=== PATIENT | female | born 1990 | race American Indian/Alaskan Native ===

== ENCOUNTER 2017-03-05 00:38 | Emergency (ER) | payer OTHER ==
[2017-03-05 00:53] VITALS: BP 123/71
--- NOTE | 2017-03-05 09:53 | XRay Report ---
ROUTINE CHEST, TWO VIEWS: HISTORY: Dyspnea. The trachea, heart, mediastinal contour, lung cruz and bony thorax are unremarkable. IMPRESSION: Unremarkable chest x-ray.
[2017-03-05 10:14] LABS: Basophils % (Auto) 2.6 % (0.0-1.8); Eosinophils % (Auto) 0.4 % (0.0-4.3); Hematocrit 36.9 % (30.3-42.9); Hemoglobin 11.8 gm/dl (10.1-14.3); Mean Corpuscular HGB Conc 32 % (30-34); Mean Corpuscular Hemoglobin 26 pg (28-32); Mean Corpuscular Volume 82 fl (79-97); Platelet Count 257 K/mm3 (140-440); Red Blood Count 4.49 M/mm3 (3.65-5.03); Red Cell Distribution Width 13.7 % (13.2-15.2); White Blood Count 6.5 K/mm3 (4.5-11.0)
[2017-03-05 10:17] LABS: Alanine Aminotransferase 15 units/L (7-56); Albumin 4.6 g/dL (3.9-5); Albumin/Globulin Ratio 1.3 %; Alkaline Phosphatase 80 units/L (35-129); Anion Gap 28 mmol/L; BUN/Creatinine Ratio 12.22; Blood Urea Nitrogen 11 mg/dL (7-17); Calcium 10.7 mg/dL (8.4-10.2); Carbon Dioxide 20 mmol/L (22-30); Chloride 119.1 mmol/L (98-107); Glucose 87 mg/dL (65-100); Potassium 5.4 mmol/L (3.6-5.0); Total Protein 8.1 g/dL (6.3-8.2)
[2017-03-05 10:55] LABS: Sodium 162 mmol/L (137-145)
[2017-03-05] MEDS ORDERED: NACL 0.9% 1000 ML 1,000 ML IV ONE (10:57)
--- NOTE | 2017-03-05 11:00 | Emergency Department Report ---
ED Shortness of Breath HPI - General Chief Complaint: Dyspnea/Respdistress Stated Complaint: LIGHTHEADED/DENNIS/NUMBNESS Time Seen by Provider: 03/05/17 08:12 Source: patient Mode of arrival: Ambulatory Limitations: No Limitations - History of Present Illness MD Complaint: shortness of breath -: Gradual Severity: moderate Pain Scale: 4 Consistency: constant Improves With: nothing Worsens With: nothing Associated Symptoms: denies other symptoms Treatments Prior to Arrival: none - Related Data Previous Rx's Medication Instructions Recorded Last Taken Type clonazePAM [Klonopin] 1 mg PO QDAC #10 tablet 03/05/17 Unknown Rx Allergies Allergy/AdvReac Type Severity Reaction Status Date / Time No Known Allergies Allergy Verified 03/05/17 00:53 ED Review of Systems ROS: Stated complaint: LIGHTHEADED/DENNIS/NUMBNESS Other details as noted in HPI Comment: All other systems reviewed and negative ED Past Medical Hx - Past Medical History Previous Medical History?: Yes Additional medical history: Bronchitis - Surgical History Past Surgical History?: Yes Additional Surgical History: hernia - Social History Smoking Status: Never Smoker Substance Use Type: None - Medications Home Medications: Home Medications Medication Instructions Recorded Confirmed Last Taken Type clonazePAM [Klonopin] 1 mg PO QDAC #10 tablet 03/05/17 Unknown Rx ED Physical Exam - General Limitations: No Limitations General appearance: alert, in no apparent distress - Head Head exam: Present: atraumatic, normocephalic - Eye Eye exam: Present: normal appearance - ENT ENT exam: Present: mucous membranes moist - Neck Neck exam: Present: normal inspection - Respiratory Respiratory exam: Present: normal lung sounds bilaterally. Absent: respiratory distress - Cardiovascular Cardiovascular Exam: Present: regular rate, normal rhythm. Absent: systolic murmur, diastolic murmur, rubs, gallop - GI/Abdominal GI/Abdominal exam: Present: soft, normal bowel sounds - Extremities Exam Extremities exam: Present: normal inspection - Back Exam Back exam: Present: normal inspection - Neurological Exam Neurological exam: Present: alert, oriented X3 - Psychiatric Psychiatric exam: Present: normal affect, normal mood - Skin Skin exam: Present: warm, dry, intact, normal color. Absent: rash ED Course Vital Signs 03/05/17 03/05/17 00:49 11:31 Temperature 98 F Pulse Rate 71 Respiratory 18 16 Rate Blood Pressure 123/71 O2 Sat by Pulse 100 99 Oximetry ED Medical Decision Making - Lab Data Result diagrams: 03/05/17 09:36 03/05/17 11:42 - EKG Data -: EKG Interpreted by Me EKG shows normal: sinus rhythm Rate: normal - EKG Data When compared to previous EKG there are: no significant change - Radiology Data Radiology results: report reviewed, image reviewed - Medical Decision Making Patient with normal workup , chest ct done after elevated ddimer, and negative , will dc and follow up as outpatient,. Critical care attestation.: If time is entered above; I have spent that time in minutes in the direct care of this critically ill patient, excluding procedure time. ED Disposition Clinical Impression: Shortness of breath Disposition: DISCHARGED TO HOME OR SELFCARE Is pt being admited?: No Does the pt Need Aspirin: No Condition: Good Instructions: Dyspnea (ED) Prescriptions: clonazePAM [Klonopin] 1 mg PO QDAC #10 tablet Referrals: PRIMARY CARE, [Primary Care Provider] - 3-5 Days Forms: Work/School Release Form(ED) Time of Disposition: 13:55
[2017-03-05 12:17] LABS: Anion Gap 23 mmol/L; Blood Urea Nitrogen 10 mg/dL (7-17); Carbon Dioxide 20 mmol/L (22-30); Glucose 77 mg/dL (65-100); Potassium 4.1 mmol/L (3.6-5.0); Sodium 138 mmol/L (137-145)
--- NOTE | 2017-03-05 13:40 | Cat Scan Report ---
CT of the chest with IV contrast. History: Dyspnea. Findings: The mediastinum and hilar regions are normal. The lungs are clear. There is no pleural fluid. No axillary adenopathy is seen. Impression: Normal study.
== END 2017-03-05 14:18 | disposition home or self-care (01) ==
LOC: ED 00:38
DX: R06.02 Shortness of breath (principal)
CPT/HCPCS: 36415; 71020; 71260; 80048; 80053; 85025; 85379; 93005; 93010; 99284; Q9967